=== PATIENT | female | born 1990 | race Caucasian/White ===

== ENCOUNTER 2020-11-17 19:36 | Emergency (ER) | payer OTHER ==
[~2020-11-17 19:36] MED LIST: DULCOLAX5 MG PO; FLEET ENEMA133 ML PR; IBUPROFEN600 MG PO; ZOFRAN ODT 4 MG4 MG SL
[2020-11-17 21:03] LABS: HEMOGLOBIN 12.8 gm/dl (12.3-15.3); RED BLOOD COUNT 4.36 M/UL (4.00-5.10); WHITE BLOOD COUNT 6.3 K/UL (4.5-11.0)
[2020-11-17 21:30] LABS: BUN/CREATININE RATIO 10 (0-10)
== END 2020-11-18 00:01 | disposition home or self-care (01) ==
LOC: ER1 19:36
PROVIDERS: Emergency Medicine
DX: R07.89 Other chest pain (principal); Z88.5 Allergy status to narcotic agent; F17.210 Nicotine dependence, cigarettes, uncomplicated
CPT/HCPCS: 71045; 80053; 82550; 82553; 83874; 84484; 85025; 85379; 93005; 99285; Q9967